=== PATIENT | female | born 1990 | race Caucasian/White ===

== ENCOUNTER 2016-08-31 21:03 | Emergency (ER) | payer OTHER ==
[2016-08-31 21:32] VITALS: BP 128/88
[2016-08-31] MEDS ORDERED: Amoxicillin/Clavulanate TAB* 875 MG PO ONE (21:37)
[2016-08-31] MEDS ORDERED: Ondansetron ODT TAB* 4 MG PO ONE (21:37)
[2016-08-31] MEDS ORDERED: Ketorolac INJ* 60 MG/2 ML VIAL IM ONE (21:41)
--- NOTE | 2016-08-31 21:52 | UC ---
Throat Pain/Nasal Noman HPI - HPI Summary HPI Summary: EIGHT WEEKS OF OF CONGESTION, FACIAL PRESSURE. SINUS PRESSURE HAS BEEN WORSENING WELL A RIGHT EAR PRESSURE AND PAIN. TEETH ARE NOW SENSITIVE. FEVER. COUGH WORSE AT NIGHT. 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 Verified 08/31/16 21:12 Breathing/I tching Home Medications: Home Medications Acetaminophen TAB* [Tylenol TAB*] 650 mg PO Q4H PRN 08/31/16 [History Confirmed 08/31/16] Naproxen [Naproxen 500 mg] 500 mg PO Q8H PRN 08/31/16 [History Confirmed ] Pseudoephedrine TAB* [Sudafed TAB*] 30 mg PO Q6H PRN 08/31/16 [History Confirmed 08/31/16] Rizatriptan Benzoate [Rizatriptan Benzoate Odt] 5 mg PO PRN 08/31/16 [History] Zonisamide 100 mg PO BEDTIME 08/31/16 [History Confirmed 08/31/16] PMH/Surg Hx/FS Hx/Imm Hx Previously Healthy: Yes - Surgical History Surgical History: Yes Surgery Procedure, Year, and Place: 2 foot surgery. - Family History Known Family History: Positive: Respiratory Disease - Social History Occupation: Employed Full-time Lives: With Family Alcohol Use: Occasionally Substance Use Type: None Smoking Status (MU): Never Smoked Tobacco Review of Systems Constitutional: Fever, Chills, Fatigue Skin: Negative ENT: Sore Throat, Ear Ache, Nasal Discharge, Sinus Congestion, Sinus Pain/ Tenderness Respiratory: Cough Cardiovascular: Negative Gastrointestinal: Negative Genitourinary: Negative Motor: Negative Neurovascular: Negative Musculoskeletal: Negative Neurological: Negative Psychological: Negative All Other Systems Reviewed And Are Negative: Yes Physical Exam Triage Information Reviewed: Yes Appearance: Well-Nourished, Ill-Appearing, Pain Distress Vital Signs: Initial Vital Signs Temp 99.1 F 08/31/16 21:18 Pulse 93 08/31/16 21:18 Resp 20 08/31/16 21:18 BP 128/88 08/31/16 21:18 Pulse Ox 100 08/31/16 21:18 Vital Signs Reviewed: Yes Eye Exam: Normal ENT: Positive: Pharynx normal, Nasal congestion, Nasal drainage, TM dull, TM red Dental Exam: Normal Neck exam: Normal Neck: Positive: Supple, Nontender, No Lymphadenopathy Respiratory Exam: Other - COUGH Respiratory: Positive: Chest non-tender, Lungs clear, Normal breath sounds, No respiratory distress, No accessory muscle use Cardiovascular Exam: Normal Cardiovascular: Positive: RRR, No Murmur, Pulses Normal, Brisk Capillary Refill Abdominal Exam: Normal Musculoskeletal Exam: Normal Musculoskeletal: Positive: Strength Intact, ROM Intact, No Edema Neurological Exam: Normal Psychological Exam: Normal Psychological: Positive: Normal Response To Family Skin Exam: Normal Throat Pain/Nasal Course/Dx - Differential Dx/Diagnosis Differential Diagnosis/HQI/PQRI: Otitis Media, Pharyngitis, Sinusitis, Tonsillitis, URI Provider Diagnoses: SINSUSITIS; RIGHT OTITIS MEDIA Discharge - Discharge Plan Condition: Stable Disposition: HOME Prescriptions: Amoxicillin/Clavulanate TAB* [Augmentin TAB 875*] 875 mg PO BID #20 tab Patient Education Materials: Pharyngitis (ED), Sinusitis (ED), Otitis Media (ED ) Referrals: Non Staff,Doctor [Primary Care Provider] -
== END 2016-08-31 22:03 | disposition home or self-care (01) ==
LOC: UCCORT 21:03
DX: J32.9 Chronic sinusitis, unspecified (principal); H66.91 Otitis media, unspecified, right ear; Z91.010 Allergy to peanuts; Z91.018 Allergy to other foods
CPT/HCPCS: 96372; 99212; A9270-GY; G0463; J1885